=== PATIENT | female | born 2005 | race Caucasian/White ===

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

== ENCOUNTER 2024-01-22 19:23 | Emergency (ER) | payer BC ==
[2024-01-22] MEDS: Aluminum Hydroxide/Magnesium Hydroxide/Simethicone XS Susp 30 ML Cup PO ONE (20:11)
== END 2024-01-22 20:37 | disposition home or self-care (01) ==
LOC: MW.ED 19:23
DX: J02.9 Acute pharyngitis, unspecified (principal); Z88.8 Allergy status to other drugs, medicaments and biological substances; Z91.018 Allergy to other foods
CPT/HCPCS: 87651; 99283; A9270

== ENCOUNTER 2024-09-09 17:10 | Emergency (ER) | payer SELFPAY ==
[2024-09-09] MEDS: traMADol 50 MG Tab PO ONE (17:33)
[2024-09-09] MEDS: Lidocaine 4% 1 each Patch TOP SCH (17:33)
[2024-09-09 17:39] LABS: BASOPHILS PERCENT AUTO 0.6 % (0.0-1.0); EOSINOPHILS ABSOLUTE AUTO 0.06 K/uL (0.00-0.45); EOSINOPHILS PERCENT AUTO 0.4 % (0.0-6.0); HEMATOCRIT 41.1 % (37.0-47.0); HEMOGLOBIN 14.3 g/dL (12.0-16.0); IMMATURE GRAN ABSOLUTE AUTO 0.04 K/uL (0.00-0.05); IMMATURE GRAN PERCENT AUTO 0.2 % (0.0-0.4); LYMPHOCYTES ABSOLUTE AUTO 2.58 K/uL (1.00-4.80); LYMPHOCYTES PERCENT AUTO 15.7 % (24.0-44.0); MEAN CORPUSCULAR HGB CONC 34.8 g/dL (32.0-36.0); MEAN CORPUSCULAR VOLUME 86.3 fL (83.0-99.0); MEAN PLATELET VOLUME 9.6 fL (9.4-12.3); MONOCYTES ABSOLUTE AUTO 1.09 K/uL (0.00-0.80); MONOCYTES PERCENT AUTO 6.6 % (0.0-8.0); NEUTROPHILS ABSOLUTE AUTO 12.59 K/uL (1.80-7.70); NEUTROPHILS PERCENT AUTO 76.5 % (41.0-71.0); PLATELET COUNT,PLT 265 K/uL (150-400); RED BLOOD CELL COUNT 4.76 M/uL (4.10-5.30); WHITE BLOOD CELL COUNT,WBC 16.46 K/uL (3.9-11.3)
[2024-09-09 17:40] LABS: APPEARANCE,URINE CLOUDY; BILIRUBIN,URINE NEGATIVE (NEGATIVE); COLOR,URINE YELLOW; GLUCOSE,URINE NEGATIVE (NEGATIVE); KETONES,URINE NEGATIVE (NEGATIVE); LEUKOCYTE ESTERASE,URINE MODERATE (NEGATIVE); NITRITE,URINE NEGATIVE (NEGATIVE); OCCULT BLOOD,URINE LARGE (NEGATIVE); PROTEIN,URINE 30 mg/dL (NEGATIVE); UROBILINOGEN,URINE 0.2 EU/dL (<2.0)
[2024-09-09 17:57] LABS: RBC,URINE 20-30 (0-2/HPF)
[2024-09-09 17:58] LABS: BACTERIA,URINE 1+ (NEGATIVE); EPITHELIAL CELLS,URINE FEW (NONE-FEW); WBC,URINE 50-75 (0-5/HPF)
[2024-09-09 18:07] LABS: A/G RATIO 1.1 (0.9-1.6); ALBUMIN 4.3 g/dL (3.4-5.0); BILIRUBIN TOTAL 0.4 mg/dL (0.2-1.0); CALCIUM 9.4 mg/dL (8.5-10.1); CARBON DIOXIDE,CO2 22.5 mmol/L (21.0-32.0); CREATININE 0.9 mg/dL (0.6-1.0); EST CRCL DRUG DOSING (CG) 71.62 mL/min; POTASSIUM,K 3.3 mmol/L (3.5-5.1); PROTEIN TOTAL,TP 8.2 g/dL (6.4-8.2)
[2024-09-09] MEDS: Ondansetron 4 MG Tab.DIS PO ONE (19:28)
[2024-09-09] MEDS: Ciprofloxacin 500 MG Tab PO ONE (19:28)
== END 2024-09-09 19:48 | disposition home or self-care (01) ==
LOC: MW.ED 17:10
DX: N39.0 Urinary tract infection, site not specified (principal); Z91.018 Allergy to other foods; Z88.8 Allergy status to other drugs, medicaments and biological substances; Z75.8 Other problems related to medical facilities and other health care
CPT/HCPCS: 36415; 74176; 80053; 81001; 84703; 85025; 87086; 99284; A9270

== ENCOUNTER 2025-01-17 12:43 | Emergency (ER) | payer OTHER ==
[2025-01-17] MEDS: Lidocaine 4% Patch TOP STA (14:11)
[2025-01-17] MEDS: Metoclopramide Oral Soln 10 MG/10 ML UD Cup PO ONE (14:11)
[2025-01-17] MEDS: Ketorolac 30 MG/ML SDV IM ONE (14:11)
== END 2025-01-17 14:49 | disposition home or self-care (01) ==
LOC: MW.ED 12:43
DX: S06.0XAA Concussion with loss of consciousness status unknown, initial encounter (principal); Z79.899 Other long term (current) drug therapy; Z88.8 Allergy status to other drugs, medicaments and biological substances; Z91.018 Allergy to other foods; Z75.8 Other problems related to medical facilities and other health care; W01.0XXA Fall on same level from slipping, tripping and stumbling without subsequent striking against object, initial encounter
CPT/HCPCS: 73080; 96372; 99284; A9270; J1885; 99283

== ENCOUNTER 2025-07-16 14:59 | Emergency (ER) | payer OTHER ==
[2025-07-16 16:02] LABS: APPEARANCE,URINE CLEAR; GLUCOSE,URINE NEGATIVE (NEGATIVE); OCCULT BLOOD,URINE LARGE (NEGATIVE)
[2025-07-16 16:19] LABS: BASOPHILS ABSOLUTE AUTO 0.06 K/uL (0.00-0.20); BASOPHILS PERCENT AUTO 0.8 % (0.0-1.0); EOSINOPHILS ABSOLUTE AUTO 0.34 K/uL (0.00-0.45); EOSINOPHILS PERCENT AUTO 4.5 % (0.0-6.0); IMMATURE GRAN ABSOLUTE AUTO 0.01 K/uL (0.00-0.05); IMMATURE GRAN PERCENT AUTO 0.1 % (0.0-0.4); LYMPHOCYTES ABSOLUTE AUTO 2.09 K/uL (1.00-4.80); LYMPHOCYTES PERCENT AUTO 27.4 % (24.0-44.0); MEAN PLATELET VOLUME 10.1 fL (9.4-12.3); MONOCYTES ABSOLUTE AUTO 0.63 K/uL (0.00-0.80); MONOCYTES PERCENT AUTO 8.3 % (0.0-8.0); NEUTROPHILS ABSOLUTE AUTO 4.49 K/uL (1.80-7.70); NEUTROPHILS PERCENT AUTO 58.9 % (41.0-71.0); NRBC ABSOLUTE 0.00 K/uL (0.00-0.02); NRBC PERCENT 0.0 /100WBC (0.0-0.2); PLATELET COUNT,PLT 214 K/uL (150-400); RED BLOOD CELL COUNT 4.71 M/uL (4.10-5.30); WHITE BLOOD CELL COUNT,WBC 7.62 K/uL (3.9-11.3)
[2025-07-16 16:23] LABS: EPITHELIAL CELLS,URINE FEW (NONE-FEW)
[2025-07-16 16:46] LABS: A/G RATIO 1.1 (0.9-1.6); ALANINE AMINOTRANSFERASE,ALT 19.0 IU/L (14-63); ASPARTATE AMNIOTRANSFERASE,AST 15.0 IU/L (15-37); BILIRUBIN TOTAL 0.5 mg/dL (0.2-1.0); BLOOD UREA NITROGEN,BUN 14.0 mg/dL (7.0-18.0); CARBON DIOXIDE,CO2 20.9 mmol/L (21.0-32.0); CHLORIDE,CL 105.0 mmol/L (98-107); CREATININE 1.0 mg/dL (0.6-1.0); EST CRCL DRUG DOSING (CG) 63.92 mL/min; GLUCOSE RANDOM 84.0 mg/dL (74-106); POTASSIUM,K 4.1 mmol/L (3.5-5.1); PROTEIN TOTAL,TP 7.9 g/dL (6.4-8.2); SODIUM,NA 139.0 mmol/L (136-145)
[2025-07-16 16:51] LABS: ESTIMATED GFR 82.0 mL/min (>60)
== END 2025-07-16 17:41 | disposition home or self-care (01) ==
LOC: MW.ED 14:59
DX: N93.9 Abnormal uterine and vaginal bleeding, unspecified (principal); Z75.3 Unavailability and inaccessibility of health-care facilities; Z91.09 Other allergy status, other than to drugs and biological substances; Z79.899 Other long term (current) drug therapy
CPT/HCPCS: 36415; 76830; 76830-26; 80053; 81001; 81025; 85025; 99283; 99284

== ENCOUNTER 2025-08-11 14:20 | Emergency (ER) | payer OTHER | END 2025-08-11 17:25 | disposition home or self-care (01) | LOC: MW.ED 14:20 | DX: R07.81 Pleurodynia (principal); Z91.048 Other nonmedicinal substance allergy status; Z79.899 Other long term (current) drug therapy | CPT/HCPCS: 71101; 99283; A9270 ==